=== PATIENT | female | born 1950 | race Caucasian/White ===

== ENCOUNTER 2021-01-14 10:34 | Outpatient (CLI) | payer MEDICARE, OTHER | END 2021-01-14 10:35 | disposition home or self-care (01) | LOC: BICMAMMO 10:34 | PROVIDERS: ATTEND Registered Nurse | DX: Z12.31 Encounter for screening mammogram for malignant neoplasm of breast (principal); Z85.3 Personal history of malignant neoplasm of breast | CPT/HCPCS: 77063; 77067 ==

== ENCOUNTER 2022-07-05 02:58 | Emergency (ER) | payer MEDICARE ==
[2022-07-05 05:34] LABS: #Lymphocytes 1.3 thou/uL (1.20-3.40); #Monocytes 0.3 thou/uL (0.11-0.59); #Neutrophils 6.5 thou/uL (1.40-6.50); %Basophils 0.1 % (0.0-1.0); %Lymphocytes 16.4 % (21.0-51.0); %Neutrophils 79.5 % (42.0-75.0); Hemoglobin 13.2 g/dL (12.0-16.0); Mean Corpuscular HGB CONC 32.9 g/dL (32.0-36.0); Mean Corpuscular Hemoglobin 31.6 pg (27.0-31.0); Mean Corpuscular Volume 96.1 fL (78.0-98.0); Mean Platelet Volume 7.7 fL (7.4-10.4); Platelet Count 190 thou/uL (130-400); RBC Distribution Width 11.7 % (11.5-14.5); Red Blood Cell (RBC) Count 4.17 mill/uL (4.20-5.40); White Blood Cell (WBC) Count 8.2 thou/uL (4.8-10.8)
== END 2022-07-05 07:03 | disposition home or self-care (01) ==
LOC: ERS 02:58
DX: K27.9 Peptic ulcer, site unspecified, unspecified as acute or chronic, without hemorrhage or perforation (principal); E11.9 Type 2 diabetes mellitus without complications; E78.5 Hyperlipidemia, unspecified; F03.90 Unspecified dementia, unspecified severity, without behavioral disturbance, psychotic disturbance, mood disturbance, and anxiety; Z79.84 Long term (current) use of oral hypoglycemic drugs
CPT/HCPCS: 36415; 85025; 96360

== ENCOUNTER 2022-07-10 08:48 | Outpatient (CLI) | payer MEDICARE | END 2022-07-10 08:49 | disposition home or self-care (01) | LOC: BICMAMMO 08:48 | PROVIDERS: ATTEND Registered Nurse | DX: Z12.31 Encounter for screening mammogram for malignant neoplasm of breast (principal); Z13.820 Encounter for screening for osteoporosis; M81.0 Age-related osteoporosis without current pathological fracture; M85.88 Other specified disorders of bone density and structure, other site; Z78.0 Asymptomatic menopausal state; Z85.3 Personal history of malignant neoplasm of breast | CPT/HCPCS: 77063; 77067; 77080 ==

== ENCOUNTER 2022-11-17 00:32 | Emergency (ER) | payer MEDICARE ==
[2022-11-17 01:09] LABS: #Eosinphils 0.1 thou/uL (0.0-0.7); #Lymphocytes 1.9 thou/uL (1.20-3.40); #Monocytes 0.6 thou/uL (0.11-0.59); #Neutrophils 6.3 thou/uL (1.40-6.50); %Basophils 0.3 % (0.0-1.0); %Lymphocytes 20.9 % (21.0-51.0); %Monocytes 6.7 % (0.0-10.0); %Neutrophils 71.2 % (42.0-75.0); Mean Corpuscular HGB CONC 33.6 g/dL (32.0-36.0); Mean Corpuscular Hemoglobin 31.5 pg (27.0-31.0); Mean Corpuscular Volume 93.6 fl (78.0-98.0); Mean Platelet Volume 7.9 fL (7.4-10.4); Platelet Count 218 10x3/uL (130-400); RBC Distribution Width 12.1 % (11.5-14.5); Red Blood Cell (RBC) Count 4.76 mill/uL (4.20-5.40); White Blood Cell (WBC) Count 8.9 10x3/uL (4.8-10.8)
[2022-11-17 01:32] LABS: ALT (SGPT) 21 U/L (8-55); AST (SGOT) 21 U/L (5-34); Albumin 3.9 g/dL (3.4-4.8); Alkaline Phosphatase 94 U/L (40-110); Anion Gap 15 mmol/L (10-20); BUN (Urea Nitrogen) 7 mg/dL (9.8-20.1); Bilirubin, Total 0.6 mg/dL (0.2-1.2); Calc. Creatinine Clearance 0 mL/min (70-130); Calcium 9.3 mg/dL (7.8-10.44); Carbon Dioxide 22 mmol/L (23-31); Chloride 103 mmol/L (98-107); Estimated GFR 74; Glucose 197 mg/dL (83-110); Magnesium 1.9 mg/dL (1.6-2.6); Potassium 4.4 mmol/L (3.5-5.1); Protein, Total 6.9 g/dL (5.8-8.1); Sodium 136 mmol/L (136-145)
== END 2022-11-17 04:18 | disposition home or self-care (01) ==
LOC: ERS 00:32
DX: R56.9 Unspecified convulsions (principal); E11.9 Type 2 diabetes mellitus without complications; E78.5 Hyperlipidemia, unspecified
CPT/HCPCS: 70450; 71045; 80053; 83735; 84484; 85025; 93005

== ENCOUNTER 2022-11-20 11:11 | Inpatient (IN) | payer MEDICARE ==
[2022-11-20 12:26] LABS: #Basophils 0.1 thou/uL (0.0-0.2); #Eosinphils 0.1 thou/uL (0.0-0.7); #Lymphocytes 2.3 thou/uL (1.20-3.40); #Monocytes 0.6 thou/uL (0.11-0.59); #Neutrophils 5.1 thou/uL (1.40-6.50); %Basophils 0.8 % (0.0-1.0); %Eosinophils 1.4 % (0.0-10.0); %Lymphocytes 28.5 % (21.0-51.0); %Monocytes 7.2 % (0.0-10.0); Hemoglobin 15.8 g/dL (12.0-16.0); Mean Corpuscular HGB CONC 33.4 g/dL (32.0-36.0); Mean Corpuscular Hemoglobin 31.4 pg (27.0-31.0); Mean Platelet Volume 8.2 fL (7.4-10.4); Platelet Count 218 10x3/uL (130-400); Red Blood Cell (RBC) Count 5.03 mill/uL (4.20-5.40); White Blood Cell (WBC) Count 8.1 10x3/uL (4.8-10.8)
[2022-11-20] MEDS ORDERED: Senokot S 8.6-50 MG TAB PO PRN (12:34)
[2022-11-20] MEDS ORDERED: Ondansetron PF 4 MG/2 ML Vial IVP PRN (12:34)
[2022-11-20] MEDS ORDERED: Acetaminophen 650 MG Suppository PR PRN (12:34)
[2022-11-20] MEDS ORDERED: Dextrose 50% Abboject 50 ML SYRINGE SLOW IVP PRN (12:34)
[2022-11-20] MEDS ORDERED: Acetaminophen 325 MG TAB PO PRN (12:34)
[2022-11-20] MEDS ORDERED: Guaifenesin DM 100-10/5 ML UDCUP PO PRN (12:34)
[2022-11-20] MEDS ORDERED: HumaLOG 300 UNITS/3 ML VIAL SC PRN ×2 (12:34)
[2022-11-20] MEDS ORDERED: Dextrose 5% in Water 1,000 ML IV PRN (12:34)
[2022-11-20 12:53] LABS: Prothrombin Time 13.6 sec (12.0-14.7)
[2022-11-20 12:54] LABS: PTT 25.8 sec (22.9-36.1)
[2022-11-20 12:59] LABS: ALT (SGPT) 19 U/L (8-55); AST (SGOT) 20 U/L (5-34); Albumin 4.1 g/dL (3.4-4.8); Alkaline Phosphatase 99 U/L (40-110); Anion Gap 14 mmol/L (10-20); BUN (Urea Nitrogen) 11 mg/dL (9.8-20.1); Bilirubin, Total 1.1 mg/dL (0.2-1.2); Calc. Creatinine Clearance 0 mL/min (70-130); Calcium 9.3 mg/dL (7.8-10.44); Carbon Dioxide 23 mmol/L (23-31); Chloride 108 mmol/L (98-107); Estimated GFR 66; Globulin 2.7 g/dL (2.4-3.5); Glucose 166 mg/dL (83-110); Potassium 4.2 mmol/L (3.5-5.1); Protein, Total 6.8 g/dL (5.8-8.1); Sodium 141 mmol/L (136-145)
[2022-11-20] MEDS ORDERED: Iopamidol-370 76% 500 ML 1 ML ONE (14:32)
[2022-11-20] MEDS ORDERED: Aspirin 81 mg Enteric Coated Tablet PO SCH (15:00)
[2022-11-20 15:59] VITALS: BMI 24.0
[2022-11-20] MEDS: Sodium Chloride 0.9% 1,000 ML IV SCH (18:15)
[2022-11-20] MEDS: Atorvastatin Calcium 40 MG TAB PO SCH (20:29)
[2022-11-21 05:33] LABS: #Basophils 0.1 thou/uL (0.0-0.2); #Eosinphils 0.2 thou/uL (0.0-0.7); #Lymphocytes 2.2 thou/uL (1.20-3.40); #Monocytes 0.5 thou/uL (0.11-0.59); #Neutrophils 3.6 thou/uL (1.40-6.50); %Basophils 0.8 % (0.0-1.0); %Eosinophils 2.6 % (0.0-10.0); %Lymphocytes 33.5 % (21.0-51.0); %Monocytes 7.8 % (0.0-10.0); %Neutrophils 55.3 % (42.0-75.0); Hemoglobin 14.4 g/dL (12.0-16.0); Mean Corpuscular HGB CONC 33.9 g/dL (32.0-36.0); Mean Corpuscular Hemoglobin 31.9 pg (27.0-31.0); Platelet Count 201 10x3/uL (130-400); Red Blood Cell (RBC) Count 4.53 mill/uL (4.20-5.40); White Blood Cell (WBC) Count 6.6 10x3/uL (4.8-10.8)
[2022-11-21 05:54] LABS: ALT (SGPT) 15 U/L (8-55); AST (SGOT) 14 U/L (5-34); Albumin 3.6 g/dL (3.4-4.8); Alkaline Phosphatase 87 U/L (40-110); Anion Gap 12 mmol/L (10-20); BUN (Urea Nitrogen) 10 mg/dL (9.8-20.1); Bilirubin, Total 1.2 mg/dL (0.2-1.2); Calc. Creatinine Clearance 65 mL/min (70-130); Calcium 8.9 mg/dL (7.8-10.44); Carbon Dioxide 22 mmol/L (23-31); Cardiac Risk 6.6 (Less than 4.5); Chloride 110 mmol/L (98-107); Cholesterol 210 mg/dl (< 200 Desired); Estimated GFR 85; Globulin 2.7 g/dL (2.4-3.5); Glucose 141 mg/dL (83-110); HDL Cholesterol 32 mg/dL (>60 Neg Risk); LDL Cholesterol, Calculated 129 mg/dL; Potassium 3.7 mmol/L (3.5-5.1); Protein, Total 6.3 g/dL (5.8-8.1); Sodium 140 mmol/L (136-145); Triglycerides 247 mg/dL (Less than 150)
[2022-11-21] MEDS: Aspirin 81 mg Enteric Coated Tablet PO SCH (12:00)
[2022-11-21] MEDS: Sodium Chloride 0.9% 1,000 ML IV SCH ×2 (17:17→21:12)
[2022-11-21] MEDS ORDERED: Cholecalciferol 1,000 UNITS (25 MCG) TAB PO SCH (20:00)
[2022-11-21] MEDS: Atorvastatin Calcium 40 MG TAB PO SCH (21:17)
[2022-11-22] MEDS: Fenofibrate Nanocrystallized 145 MG TAB PO SCH (10:27)
[2022-11-22] MEDS: Ezetimibe 10 MG TAB PO SCH (10:27)
[2022-11-22] MEDS: Aspirin 81 mg Enteric Coated Tablet PO SCH (10:27)
[2022-11-22] MEDS: Sodium Chloride 0.9% 1,000 ML IV SCH ×2 (22:18→22:21)
[2022-11-22] MEDS: Atorvastatin Calcium 40 MG TAB PO SCH (22:21)
[2022-11-23] MEDS: Aspirin 81 mg Enteric Coated Tablet PO SCH (09:57)
[2022-11-23] MEDS: Ezetimibe 10 MG TAB PO SCH (09:57)
[2022-11-23] MEDS: Fenofibrate Nanocrystallized 145 MG TAB PO SCH (09:57)
[2022-11-23] MEDS: Sodium Chloride 0.9% 1,000 ML IV SCH (10:08)
[2022-11-23] MEDS: Atorvastatin Calcium 40 MG TAB PO SCH (21:57)
[2022-11-24 05:34] LABS: #Basophils 0.1 thou/uL (0.0-0.2); #Eosinphils 0.2 thou/uL (0.0-0.7); #Lymphocytes 2.2 thou/uL (1.20-3.40); #Monocytes 0.4 thou/uL (0.11-0.59); #Neutrophils 2.2 thou/uL (1.40-6.50); %Basophils 1.2 % (0.0-1.0); %Eosinophils 3.1 % (0.0-10.0); %Lymphocytes 44.8 % (21.0-51.0); %Monocytes 7.6 % (0.0-10.0); %Neutrophils 43.4 % (42.0-75.0); Hemoglobin 13.8 g/dL (12.0-16.0); Mean Corpuscular HGB CONC 33.8 g/dL (32.0-36.0); Mean Corpuscular Hemoglobin 31.7 pg (27.0-31.0); Mean Platelet Volume 8.1 fL (7.4-10.4); Platelet Count 203 10x3/uL (130-400); RBC Distribution Width 11.9 % (11.5-14.5); Red Blood Cell (RBC) Count 4.34 mill/uL (4.20-5.40)
[2022-11-24 06:06] LABS: Anion Gap 12 mmol/L (10-20); BUN (Urea Nitrogen) 5 mg/dL (9.8-20.1); Calc. Creatinine Clearance 62 mL/min (70-130); Calcium 8.9 mg/dL (7.8-10.44); Carbon Dioxide 23 mmol/L (23-31); Chloride 110 mmol/L (98-107); Estimated GFR 80; Glucose 110 mg/dL (83-110); Potassium 3.6 mmol/L (3.5-5.1); Sodium 141 mmol/L (136-145)
[2022-11-24 06:07] LABS: Hemoglobin A1c 8.7 % (4.0-6.0)
[2022-11-24] MEDS: Sodium Chloride 0.9% 1,000 ML IV SCH (06:11)
[2022-11-24] MEDS: Ezetimibe 10 MG TAB PO SCH (10:26)
[2022-11-24] MEDS: Fenofibrate Nanocrystallized 145 MG TAB PO SCH (10:26)
[2022-11-24] MEDS: Aspirin 81 mg Enteric Coated Tablet PO SCH (10:27)
[2022-11-24] MEDS ORDERED: Furosemide 20 MG/2 ML VIAL SLOW IVP SCH (11:15)
[2022-11-24] MEDS: Atorvastatin Calcium 40 MG TAB PO SCH (21:16)
[2022-11-25] MEDS: Ezetimibe 10 MG TAB PO SCH (08:33)
[2022-11-25] MEDS: Fenofibrate Nanocrystallized 145 MG TAB PO SCH (08:33)
[2022-11-25] MEDS: Aspirin 81 mg Enteric Coated Tablet PO SCH (08:33)
[2022-11-25] MEDS: Nystatin 500,000 UNITS/5 ML UDCUP SSW SCH ×3 (13:41→20:08)
[2022-11-25] MEDS: Atorvastatin Calcium 40 MG TAB PO SCH (20:08)
[2022-11-26] MEDS: Aspirin 81 mg Enteric Coated Tablet PO SCH (09:17)
[2022-11-26] MEDS: Fenofibrate Nanocrystallized 145 MG TAB PO SCH (09:17)
[2022-11-26] MEDS: Ezetimibe 10 MG TAB PO SCH (09:17)
[2022-11-26] MEDS: Nystatin 500,000 UNITS/5 ML UDCUP SSW SCH ×2 (09:17→12:25)
[2022-11-26 11:25] VITALS: BP 143/73; TEMP 97.2
== END 2022-11-26 13:50 | DRG 65 ==
LOC: ERS 11:11 → OBSVTOIN 12:25 → NEURO 12:25
PROVIDERS: ADMIT Internal Medicine; ATTEND Family Medicine
DX: I63.89 Other cerebral infarction (principal); G81.91 Hemiplegia, unspecified affecting right dominant side; E78.5 Hyperlipidemia, unspecified; Z20.822 Contact with and (suspected) exposure to COVID-19; E11.9 Type 2 diabetes mellitus without complications; C50.919 Malignant neoplasm of unspecified site of unspecified female breast; I10 Essential (primary) hypertension; G93.89 Other specified disorders of brain; R29.810 Facial weakness; Z88.2 Allergy status to sulfonamides; Z79.84 Long term (current) use of oral hypoglycemic drugs; Z79.899 Other long term (current) drug therapy
CPT/HCPCS: 36415; 36416; 70450; 70496; 70498; 70551; 71045; 74230; 80048; 80053; 80061; 83036; 84484; 85025; 85610; 85730; 93005; 93306; 95816; 95819; 95957; J1650; J1815; J1940; J7050; Q9967; U0003; U0005

== ENCOUNTER 2022-12-30 12:51 | Outpatient (CLI) | payer MEDICARE | END 2022-12-30 12:52 | disposition home or self-care (01) | LOC: CT 12:51 | PROVIDERS: ATTEND Internal Medicine | DX: R91.1 Solitary pulmonary nodule (principal) | CPT/HCPCS: 71250 ==